=== PATIENT | female | born 1985 | race African-American/Black ===

== ENCOUNTER 2019-03-24 09:41 | Emergency (ER) | payer OTHER ==
[~2019-03-24] VITALS: Ht 152.4 cm; Wt 46.0 kg
[2019-03-24] MEDS ORDERED: IBUPROFEN 600MG TABLET PO ONE (10:15)
[2019-03-24 11:51] VITALS: BP 118/62
== END 2019-03-24 11:52 | disposition home or self-care (01) ==
LOC: ER 09:41
DX: S20.212A Contusion of left front wall of thorax, initial encounter (principal); Z98.890 Other specified postprocedural states; Z87.11 Personal history of peptic ulcer disease; Y04.0XXA Assault by unarmed brawl or fight, initial encounter; Y93.89 Activity, other specified; Y92.018 Other place in single-family (private) house as the place of occurrence of the external cause
CPT/HCPCS: 71101; 81025; 93005; 99283; Z7610

== ENCOUNTER 2021-04-24 09:15 | Emergency (ER) | payer MEDICAID, OTHER ==
[~2021-04-24] VITALS: Ht 149.9 cm; Wt 47.0 kg
[2021-04-24 09:29] VITALS: BP 103/63
[2021-04-24] MEDS ORDERED: IBUPROFEN 600MG TABLET PO ONE ×2 (09:45→10:00)
[2021-04-24] MEDS ORDERED: IBUP-2029 MT (10:04)
== END 2021-04-24 10:25 | disposition home or self-care (01) ==
LOC: ER 09:15
DX: S90.32XA Contusion of left foot, initial encounter (principal); Z98.890 Other specified postprocedural states; W50.0XXA Accidental hit or strike by another person, initial encounter; Y93.89 Activity, other specified; Y92.89 Other specified places as the place of occurrence of the external cause; Y99.8 Other external cause status
CPT/HCPCS: 73620; 99283

== ENCOUNTER 2025-07-13 19:11 | Emergency (ER) | payer MEDICAID, OTHER ==
[~2025-07-13] VITALS: Ht 149.9 cm; Wt 56.0 kg
[~2025-07-13 19:11] MED LIST: IBUP-1455 MT
[2025-07-13 19:41] VITALS: TEMP 37; O2SAT 98
[2025-07-13 20:00] VITALS: TEMP 98.6
[2025-07-13] MEDS: ACETAMINOPHEN 500MG TABLET PO ONE (20:00)
[2025-07-13] MEDS: KETOROLAC 15MG/ML VIAL IV ONE (20:00)
[2025-07-13] MEDS: SODIUM CHLORIDE 0.9% 1,000 ML IV ONE (20:00)
[2025-07-13 20:08] LABS: CLARITY URINE CLEAR (CLEAR); COLOR URINE YELLOW (YELLOW); GLUCOSE URINE NEGATIVE (NEGATIVE); KETONES URINE NEGATIVE (NEGATIVE); LEUKOCYTE ESTERASE URINE NEGATIVE (NEGATIVE); NITRITE URINE NEGATIVE (NEGATIVE); OCCULT BLOOD URINE TRACE (NEGATIVE); PH URINE 6.0 (4.5-8.0); PROTEIN URINE NEGATIVE (NEGATIVE); SPECIFIC GRAVITY URINE 1.023 (1.005-1.030); UROBILINOGEN URINE 0.2 E.U./dL (0.2-1.0)
[2025-07-13 20:25] LABS: BACTERIA URINE 1+; SQUAMOUS EPITHELIAL CELL URINE 1+ /lpf (RARE/1+); WBC URINE 0-2 /hpf (0-2)
[2025-07-13 20:26] LABS: TRICHOMONAS URINE 2+
[2025-07-13] MEDS ORDERED: DOXY150T9 MT (21:31)
[2025-07-13 21:33] LABS: BASOPHILS % 0.7 % (0.0-2.0); EOSINOPHILS % 3.1 % (0.0-5.0); HEMATOCRIT. 37.9 % (36.0-48.0); HEMOGLOBIN. 12.8 g/dL (12.0-16.0); LYMPHOCYTES % 48.3 % (20.0-50.0); MEAN PLATELET VOLUME 9.4 fl (7.4-10.4); MONOCYTES % 7.4 % (2.0-8.0); NEUTROPHILS % 40.5 % (40.0-76.0); PLATELET 243 x1000/uL (130-400); RED BLOOD CELL COUNT 4.03 mill/uL (4.2-5.4); RED CELL DISTRIBUTION WIDTH 14.3 % (11.6-14.6)
[2025-07-13 21:41] LABS: CREATININE 0.7 mg/dL (0.6-1.0)
[2025-07-13 21:42] LABS: UREA NITROGEN BLOOD 9 mg/dL (9-23)
[2025-07-13 21:43] LABS: ASPARTATE AMINOTRANSFERASE 21 IU/L (<34)
[2025-07-13 21:44] LABS: BILIRUBIN DIRECT < 0.1 mg/dL (<=3.0); BILIRUBIN TOTAL 0.3 mg/dL (0.1-1.0); PROTEIN TOTAL 7.4 g/dL (6.0-8.3)
[2025-07-13 21:47] LABS: HCG SCREEN NEGATIVE
[2025-07-13] MEDS: CEFTRIAXONE SODIUM 500MG VIAL IM ONE (22:28)
[2025-07-13] MEDS: DOXYCYCLINE HYCLATE 100MG CAPSULE PO ONE (22:31)
[2025-07-13 22:35] VITALS: BP 124/74; PULSE 69; RESP 18; O2SAT 97
== END 2025-07-13 22:35 | disposition home or self-care (01) ==
LOC: ER 19:11 → CMPBEDREQ 07-14 08:01
DX: A59.9 Trichomoniasis, unspecified (principal); N83.209 Unspecified ovarian cyst, unspecified side
CPT/HCPCS: 99285; 74176; 80076; 80048; 81003; 81025; 84703; 83690; 85025; 36415; 96372; J0696; J7030